=== PATIENT | male | born 1990 | race Two or more races ===

== ENCOUNTER 2017-06-20 23:05 | Emergency (ER) | payer OTHER ==
[~2017-06-20] VITALS: Ht 172.7 cm; Wt 56.7 kg
--- NOTE | 2017-06-21 00:09 | NUR ---
Patient discharged to home in stable conditon. Written and verbal after care instructions given. Patient verbalizes understanding of instructions.
== END 2017-06-21 00:12 | disposition home or self-care (01) ==
LOC: ER 23:08
DX: L03.116 Cellulitis of left lower limb (principal)
CPT/HCPCS: 90715; A4663; J7512